=== PATIENT | male | born 2005 | race Two or more races ===

== ENCOUNTER 2024-07-09 05:14 | Emergency (ER) | payer OTHER ==
[~2024-07-09] VITALS: Ht 165.1 cm; Wt 98.9 kg
[2024-07-09] MEDS ORDERED: DIVALPROEX SOD500 M1 PO (05:25)
[2024-07-09] MEDS ORDERED: DIVALPROEX SOD250 M1 PO (05:25)
[2024-07-09] MEDS ORDERED: BUSPIRONE HCL7.5 MG PO (05:26)
[2024-07-09] MEDS ORDERED: CONCERTA18 MG PO (05:26)
[2024-07-09] MEDS ORDERED: LORazepam 2 MG/ML VIAL IV PUSH STA (06:23)
[2024-07-09 06:42] LABS: HEMATOCRIT 45.3 % (39.0-48.0); HEMOGLOBIN 15.5 g/dL (13-16.00); MEAN CELL VOLUME 88.3 fL (80.0-100.00); MEAN CORPUSCULAR HEMOGLOBIN 30.3 pg (27.00-32.0); MEAN CORPUSCULAR HGB CONC 34.3 g/dl (32.0-36.0); PLATELET COUNT 270 K/uL (150-450); RED BLOOD COUNT 5.13 M/uL (4.00-6.00); RED CELL DISTRIBUTION WIDTH 13.9 % (11.5-14.5)
[2024-07-09 07:21] LABS: ALBUMIN 4.3 gm/dL (3.4-5.0); BILIRUBIN TOTAL 0.7 mg/dL (0.3-1.2); CALCIUM 9.9 mg/dL (8.5-10.1); CREATININE SERUM 0.85 mg/dL (0.70-1.30); GFR 116.12; GLOBULINA 4.5 G/DL (2.4-3.5); POTASSIUM 3.59 mEq/L (3.5-5.1); TOTAL PROTEIN 8.8 gm/dL (6.4-8.2)
[2024-07-09 07:38] LABS: URINE APPEARANCE Clear; URINE BILIRRUBIN Small (NEGATIVE); URINE BLOOD Negative; URINE COLOR Dark Yellow; URINE GLUCOSE Negative (NEGATIVE); URINE LEUKOCYTE Trace; URINE NITRATE Negative; URINE PROTEIN 30 (NEGATIVE)
[2024-07-09 07:43] LABS: URINE BACTERIA 61.1 uL (0.0-1933); URINE EPITHELIAL CELLS 5.6 uL (0.0-38.8); URINE RBC 45.2 uL (0.0-20.8); URINE WBC 6.3 uL (0.0-23.2)
[2024-07-09 07:45] LABS: URINE CAST 0.88 uL (0.0-1.40); URINE KETONE 40 (NEGATIVE)
[2024-07-09 07:49] LABS: COCAINE NEGATIVE (NEGATIVE); METHADONE NEGATIVE (NEGATIVE); OPIATES NEGATIVE (NEGATIVE); THC ( Cannabinoids) POSITIVE (NEGATIVE)
[2024-07-09] MEDS ORDERED: 0.9 % SODIUM CHLORIDE 1,000 ML IV SCH ×3 (09:15→10:15)
[2024-07-09] MEDS ORDERED: HALOPERIDOL LACTATE 5 MG/ML AMPUL IV ONE (12:45)
[2024-07-09] MEDS ORDERED: HALOPERIDOL LACTATE 2 MG/ML ML PO ONE (12:45)
== END 2024-07-09 17:06 | disposition home or self-care (01) ==
LOC: ER 05:16 → EMR PED 05:16
PROVIDERS: General Practice
DX: F29 Unspecified psychosis not due to a substance or known physiological condition (principal); F41.9 Anxiety disorder, unspecified; R74.8 Abnormal levels of other serum enzymes